=== PATIENT | male | born 1975 | race Caucasian/White ===

== ENCOUNTER 2016-06-14 07:50 | Emergency (ER) | payer OTHER ==
[~2016-06-14] VITALS: Ht 167.6 cm; Wt 100.5 kg
[2016-06-14 08:22] VITALS: BP 126/71; PULSE 85; RESP 18; TEMP 98.8; O2SAT 96
--- NOTE | 2016-06-14 09:23 | PD ---
HPI Chief Complaint: Psychiatric Symptoms Time Seen by Provider: 09:22 Travel History International Travel<30 days: No Contact w/Intl Traveler<30days: No Traveled to known affect area: No History of Present Illness HPI 41-year-old male brought in from local detention under Peoples act for suicidal ideation, and increased schizophrenic symptoms consisting of hearing voices. Patient was just released from an inpatient facility not too long ago. He is off his meds and feeling worse. Patient called the police this morning and they brought him in. Patient's medical complaints consists of dental pain in the right lower second molar, as well as ongoing sinus congestion headache, postnasal drip. He states the symptoms been ongoing for approximately 2 weeks. He was treated with Keflex while an inpatient basis but those antibiotics ended several days ago. Patient denies fever, chills, sore throat, chest pain, dorsal breath, abdominal pain, or other constitutional symptoms. Patient is allergic to codeine, Haldol, penicillin, and Vistaril. [facility] Social History Alcohol Use: Yes Tobacco Use: Yes Substance Use: No Allergies-Medications (Allergen,Severity, Reaction): Coded Allergies: Codeine (Verified Allergy, Severe, 06/14/16) Haldol (Verified Allergy, Severe, 06/14/16) Penicillin (Verified Allergy, Severe, 06/14/16) Vistaril (Verified Allergy, Severe, 06/14/16) Review of Systems Except as stated in HPI: all other systems reviewed are Neg General / Constitutional: No: Fever Eyes: No: Visual changes HENT: Positive: Headaches, Rhinitis, Rhinorrhea, Congestion, Dental Difficulties, No: Sore Throat Cardiovascular: No: Chest Pain or Discomfort Respiratory: No: Shortness of Breath Gastrointestinal: No: Abdominal Pain Genitourinary: No: Dysuria Musculoskeletal: No: Pain Skin: No Rash Neurologic: No: Weakness Psychiatric: No: Depression Endocrine: No: Polydipsia Hematologic/Lymphatic: No: Easy Bruising Physical Exam Narrative GENERAL: Patient appears in no acute distress. He is cooperative. He is alert and oriented 3. SKIN: Warm and dry. Normal color. Normal turgor. HEAD: Atraumatic. Normocephalic. EYES: Pupils equal and round. No scleral icterus. No injection or drainage. ENT: No nasal bleeding or discharge. Mucous membranes pink and moist. Patient has poor dental condition with tenderness of the right lower second molar with obvious caries apparent. No obvious large dental abscess is noted. Patient has generalized pansinusitis tenderness with palpation and percussion. TMs are clear bilaterally. Pharynx is clear with moderate injection and postnasal drip noted. NECK: Trachea midline. Supple and nontender. No significant lymphadenopathy. CARDIOVASCULAR: Regular rate and rhythm. RESPIRATORY: No accessory muscle use. Clear to auscultation. Breath sounds equal bilaterally. GASTROINTESTINAL: Abdomen soft, non-tender, nondistended. Hepatic and splenic margins not palpable. MUSCULOSKELETAL: Extremities without clubbing, cyanosis, or edema. No obvious deformities. NEUROLOGICAL: Awake and alert. No obvious cranial nerve deficits. Motor grossly within normal limits. Five out of 5 muscle strength in the arms and legs. Normal speech. PSYCHIATRIC: Appropriate mood and affect; insight and judgment normal. Data Data Last Documented VS Vital Signs Date Time Temp Pulse Resp B/P Pulse Ox O2 Delivery O2 Flow Rate FiO2 06/14/16 08:27 85 16 06/14/16 08:22 98.8 126/71 96 Orders Complete Blood Count With Diff (06/14/16 09:21) Comprehensive Metabolic Panel (06/14/16 09:21) Psych Screen (06/14/16 09:21) Drug Screen, Random Urine (06/14/16 09:20) Ibuprofen (Motrin) (06/14/16 09:30) Cephalexin (Keflex) (06/14/16 09:30) MDM Medical Decision Making Medical Screen Exam Complete: Yes Emergency Medical Condition: Yes Differential Diagnosis Peoples act. Psychiatric symptoms. Schizophrenia. Sinusitis. Dental pain. Narrative Course Patient is medically stable at time of exam. Patient is given Keflex 500 mg by mouth 1 which should be continued 3 times daily for the next 10 days. Patient is given ibuprofen 800 mg by mouth 1. This is for his dental pain. Psychiatric labs ordered per protocol. Patient is medically cleared for psychiatric evaluation. Diagnosis Primary Impression: Medical clearance for psychiatric admission Additional Impressions: Sinusitis, acute Qualified Code: J01.40 - Acute non-recurrent pansinusitis Dental abscess Condition: Stable Teodoro Robles Jun 14, 2016 09:22
[2016-06-14] MEDS ORDERED: IBUPROFEN 800 MG TAB PO ONE (09:30)
[2016-06-14] MEDS ORDERED: CEPHALEXIN MONOHYDRATE 500 MG CAP PO ONE (09:30)
[2016-06-14 09:37] LABS: AUTOMATED NEUTROPHIL # 6.6 TH/MM3 (1.8-7.7); BASOPHIL % 0.4 % (0.0-2.0); EOSINOPHIL # 0.1 TH/MM3 (0-0.4); EOSINOPHIL % 0.9 % (0.0-4.0); HEMATOCRIT 38.5 % (39.0-51.0); HEMO FLAGS DIFF FINAL; LYMPH % 23.2 % (9.0-44.0); LYMPHOCYTE # 2.4 TH/MM3 (1.0-4.8); MEAN CORPUSCULAR HEMOGLOBIN 29.2 PG (27.0-34.0); MONO % 10.4 % (0.0-8.0); NEUT % 65.1 % (16.0-70.0); PLATELET COUNT 261 TH/MM3 (150-450); RED BLOOD COUNT 4.48 MIL/MM3 (4.50-5.90); RED CELL DISTRIBUTION WIDTH 14.2 % (11.6-17.2); WHITE BLOOD COUNT 10.2 TH/MM3 (4.0-11.0)
[2016-06-14 09:48] LABS: AMPHETAMINE, URINE NEG (NEG); BARBITURATES, URINE NEG (NEG); COCAINE, URINE NEG (NEG)
[2016-06-14 09:54] LABS: ANION GAP 8 MEQ/L (5-15); AST (GOT) 21 U/L (15-37); BICARBONATE 27.6 MEQ/L (21.0-32.0); BLOOD UREA NITROGEN 17 MG/DL (7-18); CHLORIDE 104 MEQ/L (98-107); GLOMERULAR FILTRATION RATE 116 ML/MIN (>89); POTASSIUM 4.2 MEQ/L (3.5-5.1); SODIUM (NA) 140 MEQ/L (136-145)
[2016-06-14 09:57] LABS: ALKALINE PHOSPHATASE 60 U/L (45-117); ALT (GPT) 30 U/L (12-78); TOTAL BILIRUBIN ADULT 0.1 MG/DL (0.2-1.0)
[2016-06-14 15:08] VITALS: BP 138/82; PULSE 82; TEMP 99.4; O2SAT 97
[2016-06-14] MEDS ORDERED: DIVA500T3 PO (18:04)
[2016-06-14] MEDS ORDERED: PERP16TA6 PO (18:06)
[2016-06-14] MEDS ORDERED: BENZ1TAB PO (18:07)
[2016-06-14 18:37] VITALS: BP 140/62; PULSE 72
[2016-06-14 22:21] VITALS: BP 141/66; PULSE 67; RESP 18
[2016-06-15 02:19] VITALS: BP 142/64; PULSE 70; RESP 18; O2SAT 98
[2016-06-15 05:25] VITALS: BP 139/79; PULSE 70; RESP 18
[2016-06-15 10:00] VITALS: BP 147/73; PULSE 82; RESP 18; TEMP 97; O2SAT 96
[2016-06-15] MEDS ORDERED: BENZTROPINE MESYLATE 1 MG TAB PO SCH (11:45)
--- NOTE | 2016-06-15 11:46 | PD ---
History of Present Illness Chief Complaint: Psychiatric Symptoms Time Seen by Provider: 11:30 Travel History International Travel<30 Days: No Contact w/Intl Traveler<30days: No Known affected area: No Legal Status Legal Status: Peoples Act Peoples Act Signed By: Aram Graf History of Present Illness: History of Present Illness HPI 41-year-old male with history of schizophrenia who is brought in under a BA initiated by [facility]. As per the report he called 911 stating that he was off his medications and hearing voices. He advised them he was suicidal but had no means of carrying out the act. Says he stays at a senior living he likes to get out of. EMR is reviewed and he has not had previous contact with [facility]. His toxicology is negative. As per nursing report he was agitate fleming well as demanding when he first came to [facility]. He verbalized to them that he wanted help getting into a [place]. This morning he is alert and oriented, engaging and cooperative. His demeanor is childlike at times. His speech is clear and logical,no pressure. His mood is euthymic, no lorena. He denies any hallucinations at this time. He denies any suicidal or homicidal ideation, intent or plan. he actually claims that he never reported feeling suicidal to the police but that he became afraid because he didn't know his way around [facility] and called them for help. Patient reports that he has not had his medication in several days and that his prescriptions are at [facility] pharmacy. His plans are to get into a [place] [facility] [place] in this area and then next month when he gets his check he will try and find more stable housing. He does not want to return to the senior living where he had been living at. PFSH Past Medical History Diabetes: No Patient Takes Glucophage: No Schizophrenia: Yes Seizures: No Psychiatric History Psychiatric History Hx Psychiatric Treatment: HX SCHIZOPHRENIA PER PATIENT History of Inpatient Treatment: No Guns or firearms in home: No Social History Single male. Currently homeless. Had been living at senior living. Hx Alcohol Use: Yes Hx Tobacco Use: Yes Hx Substance Use: No (PT DENIES) Hx of Substance Use Treatment: No Family Psychiatric History negative Allergies-Medications (Allergen,Severity, Reaction): Coded Allergies: Codeine (Verified Allergy, Severe, 06/14/16) Haldol (Verified Allergy, Severe, 06/14/16) Penicillin (Verified Allergy, Severe, 06/14/16) Vistaril (Verified Allergy, Severe, 06/14/16) Reported Meds & Prescriptions Reported Meds & Active Scripts Active Reported Benztropine (Benztropine Mesylate) 1 Mg Tab 1 Mg PO BID Perphenazine 16 Mg Tab 16 Mg PO Q12HR Divalproex ER (Divalproex Sodium) 500 Mg Tab 1,000 Mg PO HS Review of Systems Ears, nose, mouth, throat: COMPLAINS OF: Toothache Psychiatric: DENIES: Anxiety, Confusion, Mood changes, Depression, Hallucinations, Agitation, Suicidal Ideation, Homicidal Ideation, Delusions Exam Alert: Yes Crowley: Person (ox4) Mood: Calm Affect: Euthymic Speech: Clear, Logical Eye Contact: Normal Memory Intact: Comment (no impairmetn) Hallucinations: Other (denies at present) Delusions: No Suicidal: Ideation (denies any) Homicidal: Ideation (deneis any) Insight/Judgement fair. poor MDM Medical Decision Making Medical Record Reviewed: Yes Assessment/Plan 41 year old male with reported hx of schizophrenia who left his senior living in [place] and moved to [facility]. He has been homeless and became afraid of being out on the streets and called the police. At this time he is denying any suicidal or homicidal ideation,he is denying any current hallucinations and does not appear to be experiencing any. he has maintained behavioral control and has not presented any concerns for his safety. The BA will lifted as he does not present any criteria. He will be given info for the homeless [facility] as well as [facility] for follow up. Orders Diet Regular Basic (06/14/16 Dinner) Diet Regular Basic (06/15/16 Breakfast) Diet Regular Basic (06/15/16 Lunch) Benztropine (Cogentin) (06/15/16 11:45) (Nf) Perphenazine (06/15/16 11:45) Results Vital Signs Date Time Temp Pulse Resp B/P Pulse Ox O2 Delivery O2 Flow Rate FiO2 06/15/16 10:00 97.0 82 18 147/73 96 Room Air 06/15/16 05:25 70 18 139/79 06/15/16 02:19 70 18 142/64 98 06/14/16 22:21 67 18 141/66 06/14/16 18:37 72 140/62 06/14/16 15:08 99.4 82 138/82 97 Diagnosis Primary Impression: Schizophrenia Additional Impressions: Sinusitis, acute Dental abscess Psychiatrically Cleared: Yes Med/ Other Pt Specific Info: No Change to Meds Disposition: 01 DISCHARGE HOME Condition: Stable Problem Qualifiers Primary Impression: Schizophrenia Qualified Code: F20.3 - Undifferentiated schizophrenia Additional Impressions: Sinusitis, acute Qualified Code: J01.40 - Acute non-recurrent pansinusitis Candida Lennon Jun 15, 2016 11:46
[2016-06-15] MEDS ORDERED: CEPH-460 PO (12:12)
[2016-06-15] MEDS ORDERED: IBUP800T23 PO (12:12)
[2016-06-15] MEDS ORDERED: PERPHENAZINE 4 MG TAB PO SCH (13:00)
== END 2016-06-15 13:23 | disposition home or self-care (01) ==
LOC: NEDAMB 07:50 → NEPJ 06-15 13:23
DX: F20.3 Undifferentiated schizophrenia (principal); J01.90 Acute sinusitis, unspecified; K04.7 Periapical abscess without sinus; Z59.0 Homelessness; Z72.0 Tobacco use
CPT/HCPCS: 80053; 80307; 85025; 99283

== ENCOUNTER 2016-06-16 13:54 | Emergency (ER) | payer OTHER, MEDICAID ==
[~2016-06-16] VITALS: Ht 167.6 cm; Wt 100.0 kg
[~2016-06-16 13:54] MED LIST: BENZ1TAB PO; CEPH-460 PO; DIVA500T3 PO; IBUP800T23 PO; PERP16TA6 PO
[2016-06-16 13:55] VITALS: BP 124/77; PULSE 94; RESP 20; TEMP 98.4; O2SAT 95
[2016-06-16 15:26] VITALS: BP 135/78; PULSE 91; RESP 18; TEMP 98.6; O2SAT 95
--- NOTE | 2016-06-16 15:48 | PD ---
HPI . Hearing voices Chief Complaint: Psychiatric Symptoms Time Seen by Provider: 14:55 Travel History International Travel<30 days: No Contact w/Intl Traveler<30days: No Traveled to known affect area: No History of Present Illness HPI 41-year-old male with no significant medical history and psychiatric history of schizophrenia here with complaints of hearing voices. Patient says he was receiving care in [facility] and his medications were changed. Since then he has been having increased episodes of auditory and visual hallucinations. Patient says the voices keep calling his name, but they are not telling him to harm himself or others. He also says that he is seeing shadows at night time. He would like to have his medications adjusted so that he can feel better. He denies any complaints such as fever, chills, cold symptoms, nausea, vomiting, chest pain, shortness breath, abdominal pain or joint pain. PFSH Past Medical History Diabetes: No Schizophrenia: Yes Seizures: No Social History Alcohol Use: Yes Tobacco Use: Yes Substance Use: No (PT DENIES) Allergies-Medications (Allergen,Severity, Reaction): Coded Allergies: Codeine (Verified Allergy, Severe, 06/16/16) Haldol (Verified Allergy, Severe, 06/16/16) Penicillin (Verified Allergy, Severe, 06/16/16) Vistaril (Verified Allergy, Severe, 06/16/16) Reported Meds & Prescriptions Reported Meds & Active Scripts Active Ibuprofen 800 Mg Tab 800 Mg PO Q6HR PRN Keflex (Cephalexin) 500 Mg Cap 500 Mg PO Q8H 10 Days Reported Benztropine (Benztropine Mesylate) 1 Mg Tab 1 Mg PO BID Perphenazine 16 Mg Tab 16 Mg PO Q12HR Divalproex ER (Divalproex Sodium) 500 Mg Tab 1,000 Mg PO HS Review of Systems General / Constitutional: No: Fever Eyes: No: Visual changes HENT: No: Headaches Cardiovascular: No: Chest Pain or Discomfort Respiratory: No: Shortness of Breath Gastrointestinal: No: Abdominal Pain Genitourinary: No: Dysuria Musculoskeletal: No: Pain Skin: No Rash Neurologic: No: Weakness Psychiatric: Positive: Depression, Other (visual and auditory hallucinations) Endocrine: No: Polydipsia Hematologic/Lymphatic: No: Easy Bruising Physical Exam Narrative GENERAL: AAO x 3, no acute distress, Well-nourished, well-developed patient. SKIN: Warm and dry. No visible rashes or bruising. HEAD: Normocephalic and atraumatic. EYES: No scleral icterus. No injection or drainage. ENT: No nasal drainage noted. Mucous membranes pink. Airway patent. NECK: Supple, trachea midline. No JVD. No lymphadenopathy. CARDIOVASCULAR: Regular rate and rhythm without murmurs, gallops, or rubs. RESPIRATORY: Breath sounds equal bilaterally. No accessory muscle use. No rhonchi or rales. GASTROINTESTINAL: Abdomen soft, non-tender, nondistended. EXTREMITIES: No cyanosis or edema. BACK: Nontender without obvious deformity. No CVA tenderness. PSYCH: AAO x 3, anxious and guarded affect. Data Data Last Documented VS Vital Signs Date Time Temp Pulse Resp B/P Pulse Ox O2 Delivery O2 Flow Rate FiO2 06/16/16 15:26 98.6 91 18 135/78 95 06/16/16 13:55 Room Air Orders Diet Regular Basic (06/16/16 Dinner) Psych Screen (06/16/16 15:02) Drug Screen, Random Urine (06/16/16 15:02) Labs Laboratory Tests Test 06/16/16 15:30 Urine Opiates Screen NEG Urine Barbiturates Screen NEG Urine Amphetamines Screen NEG Urine Benzodiazepines Screen NEG Urine Cocaine Screen NEG Urine Cannabinoids Screen NEG MDM Medical Decision Making Medical Screen Exam Complete: Yes Emergency Medical Condition: Yes Differential Diagnosis Schizoaffective exacerbation, depression, auditory hallucinations, visual hallucination Narrative Course 41-year-old male with no significant medical history and psychiatric history of schizophrenia here with complaints of hearing voices. Patient says he was receiving care in [facility] and his medications were changed. Since then he has been having increased episodes of auditory and visual hallucinations. Patient says the voices keep calling his name, but they are not telling him to harm himself or others. He also says that he is seeing shadows at night time. He would like to have his medications adjusted so that he can feel better. He denies any complaints such as fever, chills, cold symptoms, nausea, vomiting, chest pain, shortness breath, abdominal pain or joint pain. Patient seen and examined. He has no medical complaints. If his labs returned and they are normal, he will be cleared from a medical standpoint to proceed with psychiatric treatment. Diagnosis Primary Impression: Schizophrenia Qualified Code: F20.9 - Schizophrenia, unspecified type Condition: Stable Sophia Tran Jun 16, 2016 15:48 Sophia Tran Jun 16, 2016 15:48
[2016-06-16 16:49] LABS: AMPHETAMINE, URINE NEG (NEG); BARBITURATES, URINE NEG (NEG); COCAINE, URINE NEG (NEG)
[2016-06-16 18:22] VITALS: BP 136/72; PULSE 74; RESP 18; TEMP 98.3; O2SAT 97
[2016-06-16 22:23] VITALS: BP 135/76; PULSE 73; RESP 19; O2SAT 100
[2016-06-17 02:05] VITALS: BP 141/70; PULSE 73; RESP 18
[2016-06-17 06:19] VITALS: BP 127/63; PULSE 74; RESP 17; O2SAT 99
[2016-06-17 10:12] VITALS: BP 127/63; PULSE 74; RESP 17; O2SAT 99
[2016-06-17 10:34] VITALS: BP 125/73; PULSE 92; RESP 18; O2SAT 96
== END 2016-06-17 11:36 | disposition home or self-care (01) ==
LOC: NEPJ 13:54
DX: F20.9 Schizophrenia, unspecified (principal); R44.0 Auditory hallucinations; Z72.0 Tobacco use
CPT/HCPCS: 80307; 99284

== ENCOUNTER 2016-06-17 16:26 | Emergency (ER) | payer OTHER, MEDICAID ==
[~2016-06-17] VITALS: Ht 167.6 cm; Wt 105.0 kg
[2016-06-17 16:29] VITALS: BP 147/84; PULSE 87; RESP 16; TEMP 98.4; O2SAT 98
--- NOTE | 2016-06-17 19:14 | PD ---
HPI Chief Complaint: Abdominal Pain Time Seen by Provider: 19:11 Travel History International Travel<30 days: No Contact w/Intl Traveler<30days: No Traveled to known affect area: No History of Present Illness HPI Patient is a 37-year-old male presenting to emergency department for evaluation of right upper quadrant abdominal pain that radiates to his back. Patient states his been intermittent for the last 6 weeks however for the last several hours since gotten worse. He rates his pain a 6 out of 10. He states that he also has 4-5 watery loose stools a day. He denies any fever, chills, nausea, vomiting, cough. He states that he has a history of gallstones as well as a fatty liver. He denies any EtOH use in the last 2 weeks but does endorse tobacco use. PFSH Past Medical History Diabetes: No Psychiatric: Yes Schizophrenia: Yes (Per pt. ) Seizures: No Social History Alcohol Use: Yes Tobacco Use: Yes (Per records.) Substance Use: No (PT DENIES) Allergies-Medications (Allergen,Severity, Reaction): Coded Allergies: Codeine (Verified Allergy, Severe, 06/17/16) Haldol (Verified Allergy, Severe, 06/17/16) Penicillin (Verified Allergy, Severe, 06/17/16) Vistaril (Verified Allergy, Severe, 06/17/16) Reported Meds & Prescriptions Reported Meds & Active Scripts Active Ibuprofen 800 Mg Tab 800 Mg PO Q6HR PRN Reported Benztropine (Benztropine Mesylate) 1 Mg Tab 1 Mg PO BID Perphenazine 16 Mg Tab 16 Mg PO Q12HR Divalproex ER (Divalproex Sodium) 500 Mg Tab 1,000 Mg PO HS Review of Systems Except as stated in HPI: all other systems reviewed are Neg General / Constitutional: No: Fever, Chills HENT: No: Headaches Cardiovascular: No: Chest Pain or Discomfort Respiratory: No: Shortness of Breath Gastrointestinal: Positive: Diarrhea, Abdominal Pain, No: Nausea, Vomiting Genitourinary: No: Dysuria Musculoskeletal: No: Myalgias Physical Exam Narrative GENERAL: Obese, well-developed, alert male. Resting comfortably in no acute distress. SKIN: Warm and dry. HEAD: Atraumatic. Normocephalic. EYES: Pupils equal and round. No scleral icterus. No injection or drainage. ENT: No nasal bleeding or discharge. Mucous membranes pink and moist. NECK: Trachea midline. No JVD. CARDIOVASCULAR: Regular rate and rhythm. No murmur appreciated. RESPIRATORY: No accessory muscle use. Clear to auscultation. Breath sounds equal bilaterally. GASTROINTESTINAL: Abdomen soft, tender to palpation right upper quadrant, no rebound, no guarding, nondistended. Hepatic and splenic margins not palpable. Positive bowel sounds. MUSCULOSKELETAL: No obvious deformities. No clubbing. No cyanosis. No edema. NEUROLOGICAL: Awake and alert. No obvious cranial nerve deficits. Motor grossly within normal limits. Normal speech. PSYCHIATRIC: Appropriate mood and affect; insight and judgment normal. Data Data Last Documented VS Vital Signs Date Time Temp Pulse Resp B/P Pulse Ox O2 Delivery O2 Flow Rate FiO2 06/17/16 21:16 89 18 139/84 97 Room Air 06/17/16 16:29 98.4 Orders Complete Blood Count With Diff (06/17/16 19:08) Comprehensive Metabolic Panel (06/17/16 19:08) Lipase (06/17/16 19:08) Prothrombin Time / Inr (Pt) (06/17/16 19:08) Act Partial Throm Time (Ptt) (06/17/16 19:08) Urinalysis - C+S If Indicated (06/17/16 19:08) Us Abdomen Gallbladder (06/17/16 ) Labs Laboratory Tests Test 06/17/16 19:28 White Blood Count 14.9 TH/MM3 Red Blood Count 4.91 MIL/MM3 Hemoglobin 14.4 GM/DL Hematocrit 41.3 % Mean Corpuscular Volume 84.1 FL Mean Corpuscular Hemoglobin 29.4 PG Mean Corpuscular Hemoglobin 34.9 % Concent Red Cell Distribution Width 13.9 % Platelet Count 349 TH/MM3 Mean Platelet Volume 8.3 FL Neutrophils (%) (Auto) 60.8 % Lymphocytes (%) (Auto) 28.9 % Monocytes (%) (Auto) 9.4 % Eosinophils (%) (Auto) 0.6 % Basophils (%) (Auto) 0.3 % Neutrophils # (Auto) 9.1 TH/MM3 Lymphocytes # (Auto) 4.3 TH/MM3 Monocytes # (Auto) 1.4 TH/MM3 Eosinophils # (Auto) 0.1 TH/MM3 Basophils # (Auto) 0.1 TH/MM3 CBC Comment DIFF FINAL Differential Comment Prothrombin Time 10.5 SEC Prothromb Time International 1.0 RATIO Ratio Activated Partial 27.1 SEC Thromboplast Time Urine Color LIGHT-YELLOW Urine Turbidity CLEAR Urine pH 6.5 Urine Specific [place] 1.004 Urine Protein NEG mg/dL Urine Glucose (UA) NEG mg/dL Urine Ketones NEG mg/dL Urine Occult Blood NEG Urine Nitrite NEG Urine Bilirubin NEG Urine Urobilinogen LESS THAN 2.0 MG/DL Urine Leukocyte Esterase NEG Urine WBC LESS THAN 1 /hpf Microscopic Urinalysis Comment CULT NOT INDICATED Sodium Level 138 MEQ/L Potassium Level 3.8 MEQ/L Chloride Level 103 MEQ/L Carbon Dioxide Level 27.8 MEQ/L Anion Gap 7 MEQ/L Blood Urea Nitrogen 12 MG/DL Creatinine 0.72 MG/DL Estimat Glomerular Filtration 122 ML/MIN Rate Random Glucose 69 MG/DL Calcium Level 8.8 MG/DL Total Bilirubin 0.2 MG/DL Aspartate Amino Transf 14 U/L (AST/SGOT) Alanine Aminotransferase 28 U/L (ALT/SGPT) Alkaline Phosphatase 70 U/L Total Protein 7.8 GM/DL Albumin 3.5 GM/DL Lipase 156 U/L [facility] Medical Decision Making Medical Screen Exam Complete: Yes Emergency Medical Condition: Yes Interpretation(s) Vital Signs Date Time Temp Pulse Resp B/P Pulse Ox O2 Delivery O2 Flow Rate FiO2 06/17/16 16:29 98.4 87 16 147/84 98 Differential Diagnosis Cholecystitis versus gastritis versus gastroenteritis versus obstruction versus other Narrative Course Patient is a 41-year-old male presenting to the emergency department for evaluation of right upper quadrant abdominal pain. Patient reports a history of gallstones. Labs and imaging ordered and pending. Workup initiated triage, care patient will be transferred to provider with a medical bed is available. Anya Adhikari Jun 17, 2016 19:14
--- NOTE | 2016-06-17 19:52 | RADRPT ---
EXAM DATE/TIME: 06/17/2016 19:32 [facility] COMPARISON: No previous studies available for comparison. INDICATIONS : Right upper quadrant pain. MEDICAL HISTORY : Schizophrenia. Right upper quadrant pain. SURGICAL HISTORY : None. ENCOUNTER: Initial ACUITY: 2 months PAIN SCORE: 5/10 LOCATION: Right upper quadrant MEASUREMENTS: LIVER: 14.4 cm length COMMON DUCT: 4 mm RIGHT KIDNEY: 12.3 x 5.9 x 7.1 cm FINDINGS: LIVER: There appears to be some fat infiltration of liver. No dilated biliary ducts. No evidence of ascites. The portal system is patent. COMMON DUCT: No intraluminal mass or stone visualized. GALLBLADDER: No definite gallstones. There appears to be some sludge in the gallbladder. There is no fluid around the gallbladder. The gallbladder mendoza not thickened. PANCREAS: The visualized portions are within normal limits. RIGHT KIDNEY: No evidence of hydronephrosis, stone, or mass. CONCLUSION: 1. There is some sludge in the gallbladder. No definite gallstones or biliary tract obstruction. 2. Mild fatty infiltration of the liver. Boone Webber MD on June 17, 2016 at 19:49 Board Certified Radiologist. This report was verified electronically.
[2016-06-17 19:59] LABS: AUTOMATED NEUTROPHIL # 9.1 TH/MM3 (1.8-7.7); BASOPHIL # 0.1 TH/MM3 (0-0.2); BASOPHIL % 0.3 % (0.0-2.0); EOSINOPHIL # 0.1 TH/MM3 (0-0.4); EOSINOPHIL % 0.6 % (0.0-4.0); HEMATOCRIT 41.3 % (39.0-51.0); HEMO FLAGS DIFF FINAL; LYMPH % 28.9 % (9.0-44.0); LYMPHOCYTE # 4.3 TH/MM3 (1.0-4.8); MEAN CELL VOLUME 84.1 FL (80.0-100.0); MEAN CORPUSCULAR HEMOGLOBIN 29.4 PG (27.0-34.0); MEAN CORPUSCULAR HGB CONC 34.9 % (32.0-36.0); MONO % 9.4 % (0.0-8.0); NEUT % 60.8 % (16.0-70.0); PLATELET COUNT 349 TH/MM3 (150-450); RED BLOOD COUNT 4.91 MIL/MM3 (4.50-5.90); RED CELL DISTRIBUTION WIDTH 13.9 % (11.6-17.2); WHITE BLOOD COUNT 14.9 TH/MM3 (4.0-11.0)
[2016-06-17 20:04] LABS: BLOOD, URINE NEG (NEG); GLUCOSE,URINE NEG (NEG); KETONE, URINE NEG (NEG); NITRITE,URINE NEG (NEG); PH, URINE 6.5 (5.0-8.5); URINE COLOR LIGHT-YELLOW (YELLW/STRAW)
[2016-06-17 20:13] LABS: COMMENT (UR) CULT NOT INDICATED; CULTURE IF INDICATED CULT NOT INDICATED
[2016-06-17 20:15] LABS: ANION GAP 7 MEQ/L (5-15); AST (GOT) 14 U/L (15-37); BICARBONATE 27.8 MEQ/L (21.0-32.0); BLOOD UREA NITROGEN 12 MG/DL (7-18); CHLORIDE 103 MEQ/L (98-107); GLOMERULAR FILTRATION RATE 122 ML/MIN (>89); POTASSIUM 3.8 MEQ/L (3.5-5.1); SODIUM (NA) 138 MEQ/L (136-145)
[2016-06-17 20:17] LABS: APTT (PATIENT) 27.1 SEC (24.3-30.1); PROTHROMBIN TIME - PATIENT 10.5 SEC (9.8-11.6)
[2016-06-17 20:19] LABS: ALKALINE PHOSPHATASE 70 U/L (45-117); ALT (GPT) 28 U/L (12-78); TOTAL BILIRUBIN ADULT 0.2 MG/DL (0.2-1.0)
--- NOTE | 2016-06-17 21:09 | PD ---
Data Data Last Documented VS Vital Signs Date Time Temp Pulse Resp B/P Pulse Ox O2 Delivery O2 Flow Rate FiO2 06/17/16 16:29 98.4 87 16 147/84 98 Orders Complete Blood Count With Diff (06/17/16 19:08) Comprehensive Metabolic Panel (06/17/16 19:08) Lipase (06/17/16 19:08) Prothrombin Time / Inr (Pt) (06/17/16 19:08) Act Partial Throm Time (Ptt) (06/17/16 19:08) Urinalysis - C+S If Indicated (06/17/16 19:08) Us Abdomen Gallbladder (06/17/16 ) Labs Laboratory Tests Test 06/17/16 19:28 White Blood Count 14.9 TH/MM3 Red Blood Count 4.91 MIL/MM3 Hemoglobin 14.4 GM/DL Hematocrit 41.3 % Mean Corpuscular Volume 84.1 FL Mean Corpuscular Hemoglobin 29.4 PG Mean Corpuscular Hemoglobin 34.9 % Concent Red Cell Distribution Width 13.9 % Platelet Count 349 TH/MM3 Mean Platelet Volume 8.3 FL Neutrophils (%) (Auto) 60.8 % Lymphocytes (%) (Auto) 28.9 % Monocytes (%) (Auto) 9.4 % Eosinophils (%) (Auto) 0.6 % Basophils (%) (Auto) 0.3 % Neutrophils # (Auto) 9.1 TH/MM3 Lymphocytes # (Auto) 4.3 TH/MM3 Monocytes # (Auto) 1.4 TH/MM3 Eosinophils # (Auto) 0.1 TH/MM3 Basophils # (Auto) 0.1 TH/MM3 CBC Comment DIFF FINAL Differential Comment Prothrombin Time 10.5 SEC Prothromb Time International 1.0 RATIO Ratio Activated Partial 27.1 SEC Thromboplast Time Urine Color LIGHT-YELLOW Urine Turbidity CLEAR Urine pH 6.5 Urine Specific [place] 1.004 Urine Protein NEG mg/dL Urine Glucose (UA) NEG mg/dL Urine Ketones NEG mg/dL Urine Occult Blood NEG Urine Nitrite NEG Urine Bilirubin NEG Urine Urobilinogen LESS THAN 2.0 MG/DL Urine Leukocyte Esterase NEG Urine WBC LESS THAN 1 /hpf Microscopic Urinalysis Comment CULT NOT INDICATED Sodium Level 138 MEQ/L Potassium Level 3.8 MEQ/L Chloride Level 103 MEQ/L Carbon Dioxide Level 27.8 MEQ/L Anion Gap 7 MEQ/L Blood Urea Nitrogen 12 MG/DL Creatinine 0.72 MG/DL Estimat Glomerular Filtration 122 ML/MIN Rate Random Glucose 69 MG/DL Calcium Level 8.8 MG/DL Total Bilirubin 0.2 MG/DL Aspartate Amino Transf 14 U/L (AST/SGOT) Alanine Aminotransferase 28 U/L (ALT/SGPT) Alkaline Phosphatase 70 U/L Total Protein 7.8 GM/DL Albumin 3.5 GM/DL Lipase 156 U/L MDM Supervised Visit with ISAAC: Yes Narrative Course The patient was initially worked up in triage by the PA and brought back to my medical pod 4 hours after initial presentation to the emergency department. See her note for further details. Briefly this is a 41-year-old male who has history of gallstones and fatty liver who presents for evaluation of right upper quadrant abdominal discomfort. Patient has been taking 800 mg ibuprofen for infected tooth and reports that this improves his right upper quadrant pain. Vital signs show heart rate 87, blood pressure 147/84, pulse ox 98% on room air, oral temp of 98.4F. CBC shows WBC 14.9, hemoglobin 14.4, hematocrit 41.3, platelets 349. CMP is unremarkable. Lipase is 156. UA is not suggestive of UTI. Right upper quadrant ultrasound shows some sludge in the gallbladder, no definite stones or biliary tract obstruction, mild fatty filtration of the liver. On my assessment the patient is sitting on the stretcher comfortably. There is mild right upper quadrant tenderness. No peritoneal abdominal signs. Patient was made aware of all findings. He states he feels well enough to go home and follow-up as an outpatient. I believe he is stable for outpatient follow-up. He was informed on when to return to the emergency department. He verbalizes understanding and agreement with plan. Diagnosis Primary Impression: Biliary colic Additional Impression: Gallbladder sludge Referrals: Carl Jose MD 1 week General surgeon Additional Instruction: Follow-up with general surgeon Dr. Jose or a general surgeon of your choice this week. Return to the emergency department for worsening symptoms or any other concerns. Disposition: 01 DISCHARGE HOME Condition: Stable Manuel Freitas MD Jun 17, 2016 21:09
[2016-06-17 21:16] VITALS: BP 139/84; PULSE 89; RESP 18; O2SAT 97
== END 2016-06-17 22:00 | disposition home or self-care (01) ==
LOC: NEPA 16:26
DX: K80.50 Calculus of bile duct without cholangitis or cholecystitis without obstruction (principal); K82.8 Other specified diseases of gallbladder; R19.7 Diarrhea, unspecified; Z72.0 Tobacco use; Z86.59 Personal history of other mental and behavioral disorders; Z87.19 Personal history of other diseases of the digestive system
CPT/HCPCS: 76705; 80053; 81001; 83690; 85025; 85610; 85730

== ENCOUNTER 2016-06-21 08:55 | Emergency (ER) | payer OTHER, MEDICAID ==
[~2016-06-21] VITALS: Ht 167.6 cm; Wt 100.7 kg
[~2016-06-21 08:55] MED LIST changes: -CEPH-460 PO
[2016-06-21 08:59] VITALS: BP 115/71; PULSE 97; RESP 18; TEMP 98.6
[2016-06-21] MEDS ORDERED: CEPH500C PO (09:17)
[2016-06-21] MEDS ORDERED: IBUP-232 PO (09:17)
[2016-06-21] MEDS ORDERED: PERP16TA6 PO (09:17)
[2016-06-21] MEDS ORDERED: BENZ1TAB PO (09:17)
[2016-06-21] MEDS ORDERED: DIVA500T3 PO (09:17)
--- NOTE | 2016-06-21 09:21 | PD ---
HPI Chief Complaint: Psychiatric Symptoms Time Seen by Provider: 09:11 Travel History International Travel<30 days: No Contact w/Intl Traveler<30days: No Traveled to known affect area: No History of Present Illness HPI 41-year-old schizophrenic man, this is fourth ED visit in the past week or so. He discussed with [facility] yesterday after being there for 3 days. Comes back in today saying he is hearing voices that he needs help. I gave him his medicines yesterday has a mole with him. He staying at the [facility]. His a follow-up appointment in 5 days. States he still having some diarrhea. No other somatic complaints. History Past Medical History Narrative Medical Schizophrenia Tetanus Vaccination: < 5 Years Influenza Vaccination: Yes Social History Alcohol Use: No (States he quit 3 weeks ago) Tobacco Use: Yes (/2 PPD) Allergies-Medications (Allergen,Severity, Reaction): Coded Allergies: Codeine (Verified Allergy, Severe, 06/21/16) Haldol (Verified Allergy, Severe, 06/21/16) Penicillin (Verified Allergy, Severe, 06/21/16) Vistaril (Verified Allergy, Severe, 06/21/16) Reported Meds & Prescriptions Reported Meds & Active Scripts Active Reported Benztropine (Benztropine Mesylate) 1 Mg Tab 1 Mg PO BID Cephalexin 500 Mg Cap 500 Mg PO Q8H Divalproex ER (Divalproex Sodium) 500 Mg Tab 1,000 Mg PO DAILY Perphenazine 16 Mg Tab 16 Mg PO Q12HR Ibuprofen 600 Mg Tab 600 Mg PO Q6H PRN Review of Systems Except as stated in HPI: all other systems reviewed are Neg Physical Exam Narrative GENERAL: Well-appearing 41-year-old man, no acute distress. SKIN: Warm and dry. NECK: Trachea midline. No JVD. CARDIOVASCULAR: Warm and well perfused. RESPIRATORY: Normal rate and effort. GASTROINTESTINAL: Abdomen soft, non-tender, nondistended. Hepatic and splenic margins not palpable. MUSCULOSKELETAL: No obvious deformities. No edema. NEUROLOGICAL: Awake and alert. No obvious cranial nerve deficits. Motor grossly within normal limits. Normal speech. PSYCHIATRIC: Bizarre. Is not obviously responding to internal stimuli. Data Data Last Documented VS Vital Signs Date Time Temp Pulse Resp B/P Pulse Ox O2 Delivery O2 Flow Rate FiO2 06/21/16 08:59 98.6 97 18 115/71 [facility] Medical Decision Making Medical Screen Exam Complete: Yes Emergency Medical Condition: Yes Differential Diagnosis Schizophrenia, confusion, malingering, other Narrative Course Medical decision making Is a 41-year-old male presents back to the ED with a plethora of complaints. I encouraged him to continue his psychiatric medications and keep his outpatient follow-up. I don't think he needs anything further in the emergency department at this time. Diagnosis Primary Impression: Schizophrenia Patient Instructions: General Instructions Additional Instructions: Keep your follow-up appointment at [facility]. Return to the emergency department for any new or worsening symptoms. Med/Other Pt SpecificInfo: No Change to Meds Disposition: 01 DISCHARGE HOME Condition: Stable Rad Arellano MD Jun 21, 2016 09:21
== END 2016-06-21 09:29 | disposition home or self-care (01) ==
LOC: PHED 08:55
DX: F20.9 Schizophrenia, unspecified (principal)
CPT/HCPCS: 99284

== ENCOUNTER 2016-06-22 13:42 | Emergency (ER) | payer OTHER ==
[~2016-06-22] VITALS: Ht 167.6 cm; Wt 100.0 kg
[~2016-06-22 13:42] MED LIST changes: +CEPH500C PO; +IBUP-232 PO
[2016-06-22 13:44] VITALS: BP 134/85; PULSE 104; RESP 16; TEMP 98.2; O2SAT 97
--- NOTE | 2016-06-22 14:22 | PD ---
HPI Chief Complaint: Psychiatric Symptoms Time Seen by Provider: 13:54 Travel History International Travel<30 days: No Contact w/Intl Traveler<30days: No Traveled to known affect area: No History of Present Illness HPI This is a 41-year-old man who presents to the emergency department complaining of depression and anxiety symptoms. He is a history of schizophrenia. He's been the ER multiple times. I saw him yesterday. He is just released from [facility] 2 days ago. They refilled his medicines. He staying at the [facility] now. He states he made contact with police who brought him here voluntarily. Would like to see psychiatry because he is been feeling so bad still. History Past Medical History Narrative Medical Schizophrenia Social History Alcohol Use: No Tobacco Use: Yes Allergies-Medications (Allergen,Severity, Reaction): Coded Allergies: Codeine (Verified Allergy, Severe, 06/22/16) Haldol (Verified Allergy, Severe, 06/22/16) Penicillin (Verified Allergy, Severe, 06/22/16) Vistaril (Verified Allergy, Severe, 06/22/16) Reported Meds & Prescriptions Reported Meds & Active Scripts Active Reported Benztropine (Benztropine Mesylate) 1 Mg Tab 1 Mg PO BID Cephalexin 500 Mg Cap 500 Mg PO Q8H Divalproex ER (Divalproex Sodium) 500 Mg Tab 1,000 Mg PO DAILY Perphenazine 16 Mg Tab 16 Mg PO Q12HR Ibuprofen 600 Mg Tab 600 Mg PO Q6H PRN Review of Systems Except as stated in HPI: all other systems reviewed are Neg Physical Exam Narrative GENERAL: 41 year-old man, no acute distress. SKIN: Warm and dry. HEAD: Atraumatic. Normocephalic. EYES: Pupils equal and round. No scleral icterus. No injection or drainage. ENT: No nasal bleeding or discharge. Mucous membranes pink and moist. NECK: Trachea midline. No JVD. CARDIOVASCULAR: Regular rate and rhythm. No murmur appreciated. RESPIRATORY: No accessory muscle use. Clear to auscultation. Breath sounds equal bilaterally. GASTROINTESTINAL: Abdomen soft, non-tender, nondistended. Hepatic and splenic margins not palpable. MUSCULOSKELETAL: No obvious deformities. No clubbing. No cyanosis. No edema. NEUROLOGICAL: Awake and alert. No obvious cranial nerve deficits. Motor grossly within normal limits. Normal speech. PSYCHIATRIC: Little bit bizarre. Not obviously psychotic. Data Data Last Documented VS Vital Signs Date Time Temp Pulse Resp B/P Pulse Ox O2 Delivery O2 Flow Rate FiO2 06/22/16 13:44 98.2 104 16 134/85 97 Orders Psych Screen (06/22/16 14:16) MDM Medical Decision Making Medical Screen Exam Complete: Yes Emergency Medical Condition: Yes Differential Diagnosis Schizophrenia, anxiety, malingering, other Narrative Course Medical decision making INITIAL: A 41-year-old schizophrenic man who presents to the emergency department again for for psychiatric evaluation. Denies SI or HI. Does not appear overtly psychotic. He's been having more anxiety more depression. He would like to see psychiatry. I encouraged him to allow for more time for his medications take effect. His a follow-up appointment with Prasad Scott Next week. Last the psych screener come talk to him as well. Diagnosis Primary Impression: Schizophrenia Additional Instructions: Continue current medications. Follow-up with Prasad Scott as planned. Med/Other Pt SpecificInfo: No Change to Meds Disposition: 01 DISCHARGE HOME Condition: Stable Rad Arellano MD Jun 22, 2016 14:22
== END 2016-06-22 16:03 | disposition home or self-care (01) ==
LOC: NEPA 13:42
DX: F20.9 Schizophrenia, unspecified (principal); Z72.0 Tobacco use; F41.8 Other specified anxiety disorders
CPT/HCPCS: 99283

== ENCOUNTER 2016-06-22 16:56 | Emergency (ER) | payer OTHER, MEDICAID ==
[~2016-06-22] VITALS: Ht 167.6 cm; Wt 100.0 kg
[2016-06-22 17:00] VITALS: BP 135/72; PULSE 89; RESP 18; TEMP 98.1; O2SAT 99
--- NOTE | 2016-06-22 18:20 | PD ---
HPI Chief Complaint: Psychiatric Symptoms Time Seen by Provider: 17:58 Travel History International Travel<30 days: No Contact w/Intl Traveler<30days: No Traveled to known affect area: No History of Present Illness HPI Patient is a 41 year old male who comes in because he says he is hearing voices. He was here earlier in the day, but left prior to seeing a psychiatrist. He was recently admitted at [facility], and has all of his medications. He says he is feeling depressed, having trouble sleeping, and hearing voices. He denies any SI or HI. He denies any medical complaints at this time. PFS Past Medical History Diabetes: No Diminished Hearing: No Psychiatric: Yes Schizophrenia: Yes Seizures: No Tetanus Vaccination: Unknown Influenza Vaccination: Yes Past Surgical History Abdominal Surgery: Yes (Hernia) Genitourinary Surgery: Yes (Hydrocele) Other Surgery: Yes (Ganglion cyst) Social History Alcohol Use: No Tobacco Use: Yes Substance Use: No Allergies-Medications (Allergen,Severity, Reaction): Coded Allergies: Codeine (Verified Allergy, Severe, 06/29/16) Haldol (Verified Allergy, Severe, 06/29/16) Penicillin (Verified Allergy, Severe, 06/29/16) Trazodone (Verified Allergy, Severe, Arrhythmias, 06/29/16) Vistaril (Verified Allergy, Severe, 06/29/16) Reported Meds & Prescriptions Reported Meds & Active Scripts Active Reported Benztropine (Benztropine Mesylate) 1 Mg Tab 1 Mg PO BID Cephalexin 500 Mg Cap 500 Mg PO Q8H Divalproex ER (Divalproex Sodium) 500 Mg Tab 1,000 Mg PO DAILY Perphenazine 16 Mg Tab 16 Mg PO Q12HR Ibuprofen 600 Mg Tab 600 Mg PO Q6H PRN Review of Systems Except as stated in HPI: all other systems reviewed are Neg General / Constitutional: No: Fever, Chills HENT: No: Headaches, Lightheadedness Cardiovascular: No: Chest Pain or Discomfort Respiratory: No: Shortness of Breath Gastrointestinal: No: Nausea, Vomiting, Abdominal Pain Neurologic: No: Weakness, Dizziness Psychiatric: No: Suicidal Ideations Physical Exam Narrative GENERAL: Awake and alert, in no acute distress. SKIN: Warm and dry. HEAD: Atraumatic. Normocephalic. EYES: Pupils equal and round. No scleral icterus. ENT: Mucous membranes pink and moist. NECK: Trachea midline. No JVD. CARDIOVASCULAR: Regular rate and rhythm. No murmur appreciated. RESPIRATORY: No accessory muscle use. Clear to auscultation. Breath sounds equal bilaterally. GASTROINTESTINAL: Abdomen soft, non-tender, nondistended. NEUROLOGICAL: Awake and alert. No obvious cranial nerve deficits. Motor grossly within normal limits. Normal speech. PSYCHIATRIC: Appropriate mood and affect; insight and judgment normal. Data Data Last Documented VS Orders Complete Blood Count With Diff (06/22/16 18:08) Comprehensive Metabolic Panel (06/22/16 18:08) Psych Screen (06/22/16 18:08) Drug Screen, Random Urine (06/22/16 18:08) Valproic Acid (Depakene) (06/22/16 18:08) Diet Regular Basic (06/23/16 Breakfast) MDM Medical Decision Making Medical Screen Exam Complete: Yes Emergency Medical Condition: Yes Medical Record Reviewed: Yes Differential Diagnosis Psychosis versus intoxication versus suicidal Narrative Course Patient is a 41-year-old male comes in because he says he is hearing voices. He was here earlier, but left AMA. He comes back because he says he just can't take hearing the voices anymore. He reports compliance with his medications. Patient will be medically cleared for psychiatric evaluation. Diagnosis Primary Impression: Medical clearance for psychiatric admission Condition: Kayla Estrella MD Jun 22, 2016 18:20
[2016-06-22 18:39] LABS: AUTOMATED NEUTROPHIL # 7.3 TH/MM3 (1.8-7.7); BASOPHIL # 0.1 TH/MM3 (0-0.2); BASOPHIL % 0.5 % (0.0-2.0); EOSINOPHIL # 0.1 TH/MM3 (0-0.4); EOSINOPHIL % 0.8 % (0.0-4.0); HEMO FLAGS DIFF FINAL; LYMPH % 28.4 % (9.0-44.0); LYMPHOCYTE # 3.3 TH/MM3 (1.0-4.8); MEAN CELL VOLUME 85.7 FL (80.0-100.0); MEAN CORPUSCULAR HEMOGLOBIN 28.6 PG (27.0-34.0); MEAN CORPUSCULAR HGB CONC 33.3 % (32.0-36.0); NEUT % 62.3 % (16.0-70.0); PLATELET COUNT 254 TH/MM3 (150-450); RED BLOOD COUNT 4.55 MIL/MM3 (4.50-5.90); RED CELL DISTRIBUTION WIDTH 14.3 % (11.6-17.2); WHITE BLOOD COUNT 11.7 TH/MM3 (4.0-11.0)
[2016-06-22 18:55] LABS: AMPHETAMINE, URINE NEG (NEG); BARBITURATES, URINE NEG (NEG); COCAINE, URINE NEG (NEG)
[2016-06-22 19:04] LABS: AST (GOT) 16 U/L (15-37); BICARBONATE 26.7 MEQ/L (21.0-32.0); BLOOD UREA NITROGEN 14 MG/DL (7-18); GLOMERULAR FILTRATION RATE 120 ML/MIN (>89)
[2016-06-22 19:33] LABS: ALKALINE PHOSPHATASE 64 U/L (45-117); ALT (GPT) 24 U/L (12-78); ANION GAP 9 MEQ/L (5-15); CHLORIDE 105 MEQ/L (98-107); POTASSIUM 4.1 MEQ/L (3.5-5.1); SODIUM (NA) 141 MEQ/L (136-145); TOTAL BILIRUBIN ADULT 0.4 MG/DL (0.2-1.0)
[2016-06-22 20:45] VITALS: BP 118/74; PULSE 85; RESP 18; O2SAT 98
[2016-06-22 22:17] VITALS: BP 133/77; PULSE 83; RESP 18; O2SAT 96
[2016-06-23 03:12] VITALS: BP 129/68; PULSE 68; RESP 17; O2SAT 99
[2016-06-23 10:00] VITALS: BP 141/74; PULSE 77; RESP 18
--- NOTE | 2016-06-23 11:16 | PD ---
History of Present Illness Chief Complaint: Psychiatric Symptoms Travel History International Travel<30 Days: No Contact w/Intl Traveler<30days: No Known affected area: No Legal Status Legal Status: Voluntary History of Present Illness: Patient has apparently been to this emergency department several times over the last several weeks. He is currently denying any suicidal or homicidal ideation , plan or intent. He lives at the [facility] for a week. No psychotic symptoms and patient does not meet inpatient psychiatric criteria. PFSH Past Medical History Medical History: Denies Significant Hx Diabetes: No Diminished Hearing: No Psychiatric: Yes Schizophrenia: Yes Seizures: No Tetanus Vaccination: Unknown Influenza Vaccination: Yes Past Surgical History Abdominal Surgery: Yes (Hernia) Genitourinary Surgery: Yes (Hydrocele) Other Surgery: Yes (Ganglion cyst) Psychiatric History Psychiatric History Hx Psychiatric Treatment: HX SCHIZOPHRENIA PER PATIENT this physician does not see evidence of schizophrenia. However the patient does appear to be quite manipulative. History of Inpatient Treatment: No Social History Hx Alcohol Use: No Hx Tobacco Use: Yes Hx Substance Use: No Hx of Substance Use Treatment: No Allergies-Medications (Allergen,Severity, Reaction): Coded Allergies: Codeine (Verified Allergy, Severe, 06/22/16) Haldol (Verified Allergy, Severe, 06/22/16) Penicillin (Verified Allergy, Severe, 06/22/16) Vistaril (Verified Allergy, Severe, 06/22/16) Reported Meds & Prescriptions Reported Meds & Active Scripts Active Reported Benztropine (Benztropine Mesylate) 1 Mg Tab 1 Mg PO BID Cephalexin 500 Mg Cap 500 Mg PO Q8H Divalproex ER (Divalproex Sodium) 500 Mg Tab 1,000 Mg PO DAILY Perphenazine 16 Mg Tab 16 Mg PO Q12HR Ibuprofen 600 Mg Tab 600 Mg PO Q6H PRN Review of Systems ROS Limitations: Clinical Condition Except as stated in HPI: all other systems reviewed are Neg Exam Exam Limitations: Clinical Condition Alert: Yes [place]: Person, Place, Date, Situation Mood: Calm Affect: Euthymic Speech: Clear, Logical Eye Contact: Normal Memory Intact: Immediate, Recent, Remote Insight/Judgement Adequate. MDM Medical Decision Making Medical Record Reviewed: Yes Assessment/Plan At this time the patient appears to be calm, pleasant and cooperative. He denies suicidal or homicidal ideation. He denies any psychotic symptoms. He does not currently show evidence of his reported history of schizophrenia. He would like to return to the [facility]. He does not want any psychotropic medication. This physician feels he is competent to make these decisions. Orders Complete Blood Count With Diff (06/22/16 18:08) Comprehensive Metabolic Panel (06/22/16 18:08) Psych Screen (06/22/16 18:08) Drug Screen, Random Urine (06/22/16 18:08) Valproic Acid (Depakene) (06/22/16 18:08) Diet Regular Basic (06/23/16 Breakfast) Diet Regular Basic (06/23/16 Lunch) Results Vital Signs Date Time Temp Pulse Resp B/P Pulse Ox O2 Delivery O2 Flow Rate FiO2 06/23/16 10:00 77 18 141/74 Room Air 06/23/16 03:12 68 17 129/68 99 06/22/16 22:17 83 18 133/77 96 06/22/16 20:45 85 18 118/74 98 06/22/16 17:00 98.1 89 18 135/72 99 Laboratory Tests Test 06/22/16 06/22/16 18:16 18:35 White Blood Count 11.7 Red Blood Count 4.55 Hemoglobin 13.0 Hematocrit 39.0 Mean Corpuscular Volume 85.7 Mean Corpuscular Hemoglobin 28.6 Mean Corpuscular Hemoglobin 33.3 Concent Red Cell Distribution Width 14.3 Platelet Count 254 Mean Platelet Volume 8.5 Neutrophils (%) (Auto) 62.3 Lymphocytes (%) (Auto) 28.4 Monocytes (%) (Auto) 8.0 Eosinophils (%) (Auto) 0.8 Basophils (%) (Auto) 0.5 Neutrophils # (Auto) 7.3 Lymphocytes # (Auto) 3.3 Monocytes # (Auto) 0.9 Eosinophils # (Auto) 0.1 Basophils # (Auto) 0.1 CBC Comment DIFF FINAL Differential Comment Sodium Level 141 Potassium Level 4.1 Chloride Level 105 Carbon Dioxide Level 26.7 Anion Gap 9 Blood Urea Nitrogen 14 Creatinine 0.73 Estimat Glomerular Filtration 120 Rate Random Glucose 80 Calcium Level 8.8 Total Bilirubin 0.4 Aspartate Amino Transf 16 (AST/SGOT) Alanine Aminotransferase 24 (ALT/SGPT) Alkaline Phosphatase 64 Total Protein 7.2 Albumin 3.5 Valproic Acid (Depakene) Level 33 Urine Opiates Screen NEG Urine Barbiturates Screen NEG Urine Amphetamines Screen NEG Urine Benzodiazepines Screen NEG Urine Cocaine Screen NEG Urine Cannabinoids Screen NEG Diagnosis Primary Impression: Adjustment disorder with mixed disturbance of emotions and conduct Shakir Mayberry MD Jun 23, 2016 11:15
== END 2016-06-23 12:48 | disposition home or self-care (01) ==
LOC: NEPA 16:56 → NEPJ 06-23 12:48
DX: F43.25 Adjustment disorder with mixed disturbance of emotions and conduct (principal); Z87.891 Personal history of nicotine dependence; F20.3 Undifferentiated schizophrenia; F20.9 Schizophrenia, unspecified
CPT/HCPCS: 80053; 80164; 80307; 85025; 99283

== ENCOUNTER 2016-06-25 10:49 | Emergency (ER) | payer OTHER ==
[~2016-06-25] VITALS: Ht 167.6 cm; Wt 104.5 kg
[~2016-06-25 10:49] MED LIST changes: -IBUP800T23 PO
[2016-06-25 10:50] VITALS: BP 138/79; PULSE 94; RESP 18; TEMP 98.4; O2SAT 95
--- NOTE | 2016-06-25 11:07 | PD ---
HPI Chief Complaint: Pain: Acute or Chronic Time Seen by Provider: 11:04 Travel History International Travel<30 days: No Contact w/Intl Traveler<30days: No Traveled to known affect area: No History of Present Illness HPI Patient is a 41-year-old male presenting to emergency department for evaluation of left wrist pain. Patient states he had surgery in 2013 and has intermittent pain since that time. He states for the last few days his wrist has been sore but is able to move it. He denies any new injury or trauma, weakness, numbness. Patient states he takes ibuprofen for his tooth which helps his wrist pain as well. He reports the pain as a 4-5 out of 10 at times. PFSH Past Medical History Diabetes: No Diminished Hearing: No Psychiatric: Yes Schizophrenia: Yes Seizures: No Past Surgical History Abdominal Surgery: Yes (Hernia) Genitourinary Surgery: Yes (Hydrocele) Other Surgery: Yes (Ganglion cyst) Social History Alcohol Use: No Tobacco Use: Yes Substance Use: No Allergies-Medications (Allergen,Severity, Reaction): Coded Allergies: Codeine (Verified Allergy, Severe, 06/22/16) Haldol (Verified Allergy, Severe, 06/22/16) Penicillin (Verified Allergy, Severe, 06/22/16) Vistaril (Verified Allergy, Severe, 06/22/16) Reported Meds & Prescriptions Reported Meds & Active Scripts Active Reported Benztropine (Benztropine Mesylate) 1 Mg Tab 1 Mg PO BID Cephalexin 500 Mg Cap 500 Mg PO Q8H Divalproex ER (Divalproex Sodium) 500 Mg Tab 1,000 Mg PO DAILY Perphenazine 16 Mg Tab 16 Mg PO Q12HR Ibuprofen 600 Mg Tab 600 Mg PO Q6H PRN Review of Systems Except as stated in HPI: all other systems reviewed are Neg Musculoskeletal: Positive: Arthralgias Physical Exam Narrative GENERAL: Well-nourished, well-developed patient. SKIN: Warm and dry. HEAD: Normocephalic. EYES: No scleral icterus. No injection or drainage. NECK: Supple, trachea midline. No JVD or lymphadenopathy. CARDIOVASCULAR: Regular rate and rhythm without murmurs, gallops, or rubs. RESPIRATORY: Breath sounds equal bilaterally. No accessory muscle use. GASTROINTESTINAL: Abdomen soft, non-tender, nondistended. MUSCULOSKELETAL: No cyanosis, or edema. Full range of motion in left wrist, positive radial pulse, brisk less than 3 second capillary refill. 5/5 muscle strength in bilateral upper extremities. No obvious deformities noted. No erythema or induration noted BACK: Nontender without obvious deformity. No CVA tenderness. Data Data Last Documented VS Vital Signs Date Time Temp Pulse Resp B/P Pulse Ox O2 Delivery O2 Flow Rate FiO2 06/25/16 10:50 98.4 94 18 138/79 95 Room Air [facility] Medical Decision Making Medical Screen Exam Complete: Yes Emergency Medical Condition: No Interpretation(s) Vital Signs Date Time Temp Pulse Resp B/P Pulse Ox O2 Delivery O2 Flow Rate FiO2 06/25/16 10:50 98.4 94 18 138/79 95 Room Air Differential Diagnosis Chronic pain versus arthritis versus carpal tunnel syndrome versus other Narrative Course Patient is a 41-year-old male presenting to emergency for evaluation of left wrist pain and ongoing for the last 4 days however patient does have frequent exacerbation secondary to surgery 4 years ago. Patient is neurovascularly intact. There was no new injury or trauma. A medical screening exam was performed: At the time of evaluation the presenting medical condition was determined not to be of an emergent nature. The patient was given the option of receiving additional care, but declined. Patient was given options for additional community resources from which to obtain care. The Patient Has Been advised to seek medical attention for their presenting complaint. The patient has been advised to return to the ER at any time if an emergent condition develops. Examination was advised to establish care with a primary doctor at the community clinic for further evaluation management of his chronic health conditions. Diagnosis Primary Impression: Encounter for medical screening examination Condition: Stable Anya Adhikari Jun 25, 2016 11:07
== END 2016-06-25 11:31 | disposition left against medical advice (07) ==
LOC: NEPB 10:49
DX: M25.532 Pain in left wrist (principal)
CPT/HCPCS: 99281

== ENCOUNTER 2016-06-29 12:48 | Emergency (ER) | payer OTHER, MEDICAID ==
[~2016-06-29] VITALS: Ht 167.6 cm; Wt 99.5 kg
[2016-06-29 12:49] VITALS: BP 139/74; PULSE 86; RESP 20; TEMP 98.4; O2SAT 95
--- NOTE | 2016-06-29 14:01 | PD ---
HPI Chief Complaint: Psychiatric Symptoms Time Seen by Provider: 14:00 Travel History International Travel<30 days: No Contact w/Intl Traveler<30days: No Traveled to known affect area: No History of Present Illness HPI 41 year old male presents to the ED for evaluation. Pt states he has a history of schizophrenia. He isn't taking his medication as prescribed. He has been having some auditory and visual hallucinations but states this does happen at times. Denies any suicidal homicidal ideations. Patient ate that he is here because he "wants to know why he tested positive for marijuana." Patient states that he was at [employer] and a tested his urine and it tested positive for marijuana and cocaine. Patient states that he does not use these drugs that he wants to know why he tested positive. He has no acute medical needs at this time. PFSH Past Medical History Hx Anticoagulant Therapy: No Cardiovascular Problems: No Chemotherapy: No Cerebrovascular Accident: No Diabetes: No Diminished Hearing: No Psychiatric: Yes Respiratory: No Schizophrenia: Yes Seizures: No Past Surgical History Abdominal Surgery: Yes (Hernia) Genitourinary Surgery: Yes (Hydrocele) Other Surgery: Yes (Ganglion cyst) Social History Alcohol Use: No Tobacco Use: Yes (1/2PPD) Substance Use: No Allergies-Medications (Allergen,Severity, Reaction): Coded Allergies: Codeine (Verified Allergy, Severe, 06/29/16) Haldol (Verified Allergy, Severe, 06/29/16) Penicillin (Verified Allergy, Severe, 06/29/16) Trazodone (Verified Allergy, Severe, Arrhythmias, 06/29/16) Vistaril (Verified Allergy, Severe, 06/29/16) Reported Meds & Prescriptions Reported Meds & Active Scripts Active Reported Benztropine (Benztropine Mesylate) 1 Mg Tab 1 Mg PO BID Cephalexin 500 Mg Cap 500 Mg PO Q8H Divalproex ER (Divalproex Sodium) 500 Mg Tab 1,000 Mg PO DAILY Perphenazine 16 Mg Tab 16 Mg PO Q12HR Ibuprofen 600 Mg Tab 600 Mg PO Q6H PRN Review of Systems Except as stated in HPI: all other systems reviewed are Neg Physical Exam Narrative GENERAL: Well-nourished male patient, ambulatory and in no acute distress SKIN: Warm and dry. HEAD: Atraumatic. Normocephalic. EYES: Pupils equal and round. No scleral icterus. No injection or drainage. ENT: No nasal bleeding or discharge. Mucous membranes pink and moist. NECK: Trachea midline. No JVD. CARDIOVASCULAR: Regular rate and rhythm. No murmur appreciated. RESPIRATORY: No accessory muscle use. Clear to auscultation. Breath sounds equal bilaterally. GASTROINTESTINAL: Abdomen soft, non-tender, nondistended. Hepatic and splenic margins not palpable. MUSCULOSKELETAL: No obvious deformities. No clubbing. No cyanosis. No edema. NEUROLOGICAL: Awake and alert. No obvious cranial nerve deficits. Motor grossly within normal limits. Normal speech. Data Data Last Documented VS Vital Signs Date Time Temp Pulse Resp B/P Pulse Ox O2 Delivery O2 Flow Rate FiO2 06/29/16 12:49 98.4 86 20 139/74 95 Room Air MDM Medical Decision Making Medical Screen Exam Complete: Yes Emergency Medical Condition: Yes Medical Record Reviewed: Yes Differential Diagnosis Mood disorder versus personality disorder versus adjustment reaction disorder versus substance abuse Narrative Course 41-year-old male presents to the emergency department for evaluation. Patient appears without distress. I told him that I cannot explain why a drug test to be positive if he does not do those drugs. Initially he becomes a little irritated that I cannot give him a better answer but then apologizes. He is comfortable being discharged as there is nothing much good for him at this time. Diagnosis Primary Impression: Medical clearance for psychiatric admission Additional Impression: Schizophrenia Qualified Code: F20.9 - Schizophrenia, unspecified type Referrals: [facility] (Out patient) Primary Care Physician Patient Instructions: General Instructions, Medical Clearance for Psychiatric Care (ED) Additional Instructions: Follow-up with your primary care provider Continue medication as already prescribed Return immediately with any acute worsening of symptoms Med/Other Pt SpecificInfo: No Change to Meds Disposition: 01 DISCHARGE HOME Condition: Stable GardinerRatna fisher EDINSON Jun 29, 2016 14:01
== END 2016-06-29 15:00 | disposition home or self-care (01) ==
LOC: NEPC 12:48
DX: F20.9 Schizophrenia, unspecified (principal); F17.210 Nicotine dependence, cigarettes, uncomplicated
CPT/HCPCS: 99283